=== PATIENT | male | born 1975 | race American Indian/Alaskan Native ===

== ENCOUNTER 2017-11-27 06:26 | Day surgery (SDC) | payer OTHER ==
[~2017-11-27 06:26] MED LIST: ANCEF/STERILE WATER 2 GM/20 ML 2 GM/20 ML SYRINGE IV NR; NACL 0.9% 1000 ML 1,000 ML IV SCH; VERSED IV NR
[2017-11-27] MEDS ORDERED: PROTAMINE SULFATE ONE (07:30)
[2017-11-27] MEDS ORDERED: PAPAVERINE ONE (07:30)
[2017-11-27] MEDS ORDERED: THROMBIN (BOVINE) TP ONE ×2 (07:31→09:33)
[2017-11-27] MEDS ORDERED: XYLOCAINE 1%/ EPI 1:100,000 INFILTRATI ONE (07:31)
[2017-11-27] MEDS ORDERED: SODIUM BICARBONATE ONE (07:31)
[2017-11-27] MEDS ORDERED: NACL 0.9% 500 ML 500 ML ONE (07:31)
[2017-11-27] MEDS ORDERED: MARCAINE-EPI 0.25%-1:200,000 INFILTRATI ONE (07:31)
[2017-11-27] MEDS ORDERED: GELFOAM TP ONE ×2 (07:31→09:32)
[2017-11-27] MEDS ORDERED: HEPARIN 10,000 UNITS/10 ML ONE (07:35)
[2017-11-27] MEDS ORDERED: MARCAINE-EPI 0.5%-1:200,000 INFILTRATI ONE ×3 (07:39→09:33)
[2017-11-27] MEDS ORDERED: SUBLIMAZE ONE (07:46)
[2017-11-27] MEDS ORDERED: XYLOCAINE MPF 2% ONE (07:46)
[2017-11-27] MEDS ORDERED: DIPRIVAN 10 MG/ML IV ONE (07:47)
[2017-11-27 08:11] LABS: Basophils % (Auto) 0.5 % (0.0-1.8); Eosinophils # (Auto) 0.3 K/mm3 (0.0-0.4); Eosinophils % (Auto) 4.2 % (0.0-4.3); Hematocrit 27.8 % (35.5-45.6); Hemoglobin 8.8 gm/dl (11.8-15.2); Lymphocytes # (Auto) 1.5 K/mm3 (1.2-5.4); Mean Corpuscular HGB Conc 32 % (32-34); Mean Corpuscular Volume 75 fl (84-94); Monocytes # (Auto) 0.7 K/mm3 (0.0-0.8); Monocytes % (Auto) 9.6 % (0.0-7.3); Platelet Count 257 K/mm3 (140-440); Red Blood Count 3.73 M/mm3 (3.65-5.03); Red Cell Distribution Width 16.4 % (13.2-15.2)
--- NOTE | 2017-11-27 08:15 | Anesthesia Consultation ---
Anesthesia Consult and Med Hx Date of service: 11/27/17 - Airway Anesthetic Teeth Evaluation: Poor (very loose bottom tooth), Chipped (front tooth ) ROM Head & Neck: Adequate Mental/Hyoid Distance: Adequate Mallampati Class: Class II Intubation Access Assessment: Probably Good - Pulmonary Exam CTA: Yes - Cardiac Exam Cardiac Exam: RRR - Pre-Operative Health Status ASA Pre-Surgery Classification: ASA3 Proposed Anesthetic Plan: General - Pre-Anesthesia Comment Pre-Anesthesia Comments: history DM, no medications for 3 years. Started dialysis via permacath 10/15 - Pulmonary Hx Smoking: Yes (former) - Cardiovascular System Hx Hypertension: Yes (x 1 mo) - Endocrine Hx Renal Disease: Yes Hx End Stage Renal Disease: Yes - Hematic Hx Sickle Cell Disease: Yes (Trait only)
--- NOTE | 2017-11-27 08:16 | Anesthesia Day of Surgery ---
Anesthesia Day of Surgery - Day of Surgery Patient Examined: Yes Patient H&P Reviewed: Yes Patient is NPO: Yes Beta Blockers: Yes
[2017-11-27 08:17] LABS: Mean Corpuscular Hemoglobin 24 pg (28-32)
[2017-11-27 08:23] LABS: Calcium 8.8 mg/dL (8.4-10.2)
[2017-11-27] MEDS ORDERED: NITROGLYCERIN SYRINGE 3 ML ONE (09:20)
[2017-11-27] MEDS ORDERED: NACL 0.9% IR ONE (09:32)
[2017-11-27] MEDS ORDERED: NITROGLYCERIN SYRINGE UD ONE (09:33)
[2017-11-27] MEDS ORDERED: HEPARIN 10,000 UNITS/10 ML 2,000 UNIT in NACL 0.9% 500 ML 500 ML IR ONE (09:34)
[2017-11-27] MEDS ORDERED: ePHEDrine SULFATE ONE (09:55)
[2017-11-27] MEDS ORDERED: ZOFRAN ONE (10:14)
[2017-11-27] MEDS ORDERED: NEO SYNEPHRINE/NS Syringe(OR USE) IV ONE (10:14)
--- NOTE | 2017-11-27 10:19 | Short Stay Summary ---
Short Stay Documentation Date of service: 11/27/17 - History H&P: obtained from office - Allergies and Medications Current Medications: Allergies No Known Allergies Allergy (Unverified 11/26/17 09:58) Active Medications Sodium Chloride (Nacl 0.9% 1000 Ml) 1,000 mls @ 100 mls/hr IV DIRECT ELIDIA Last Admin: 11/27/17 07:50 Dose: 100 mls/hr Cefazolin Sodium (Ancef/Sterile Water 2 Gm/20 Ml) 2 gm in 20 mls @ 80 mls/hr IV PREOP NR; Protocol Stop: 11/27/17 23:59 Midazolam HCl (Versed) 2 mg IV PREOP NR Stop: 11/27/17 23:59 Last Admin: 11/27/17 08:09 Dose: 2 mg - Brief post op/procedure progress note Date of procedure: 11/27/17 Pre-op diagnosis: ESRD Post-op diagnosis: same Procedure: LUE brachial artery to cephalic vein fistula at the elbow. Anesthesia: GETA, local (1/2% Marcaine w epi) Findings: excellent thrill and easily palpable radial pulse at the end of the case Surgeon: VIOLETTA QUIROGA Estimated blood loss: minimal Pathology: none Condition: stable - Hospital course Hospital course: benign - Disposition Condition at discharge: Good Short Stay Discharge Plan Activity: no restrictions, advance as tolerated Diet: advance as tolerated Wound: per your surgeon's advice Follow up with: VIOLETTA QUIROGA MD [Staff Physician] - 14 Days Forms: [facility]patient [facility] DC Inst. Prescriptions: HYDROcodone/ACETAMINOPHEN [[place] 5-325 Tablet] 1 each PO Q6HR PRN #20 tablet PRN Reason: Pain, Moderate (4-6)
--- NOTE | 2017-11-27 10:22 | Operative Report ---
Operative Report Operative Report: Date of procedure: 11/27/2017 Pre-operative diagnosis: End-stage renal failure Post-operative diagnosis: Same Procedure name(s): [Cephalic] vein to brachial artery fistula at the level of the elbow in the left upper extremity Surgeon: Ángel Gary MD Pitch Filler: None Anesthesia: Gen plus local supplementation w 1/2% Marcaine w epi EBL: Less than 50 mL Operative indication: Patient is a 41 year old man with a history of end-stage renal failure. The patient presents for establishment of long-term hemodialysis access. Findings: Excellent thrill in the arteriovenous fistula at the end of the procedure. Easily palpable radial pulse distal to the anastomosis. Procedure: The patient was placed on the table in the supine position. The left arm was prepped with ChloraPrep solution and draped in the usual sterile fashion. The ultrasound was used to identify the [cephalic] vein after a tourniquet had been placed in the upper arm using a rubber glove. The vein appeared to be of adequate caliber and no thrombus was noted. Under local anesthesia, an incision was made just below the elbow. Dissection was carried out to identify the [cephalic] vein. Dissection was also carried out to identify the [brachial] artery. The vein was dissected from the surrounding tissue to provide enough length to reach the artery. A branch point of the vein was spatulated for the anastomosis. Nitroglycerin was instilled into the vein to dwell while the anastomosis was created. An arteriotomy was made in the artery. Nitroglycerin was instilled into the proximal portion of the artery as well. An end-to-side anastomosis was created using running 7-0 Prolene. A #2 Lydia catheter was used to make sure all vessels were patent. The anastomosis was completed and flow started into the fistula. There was a strong thrill up the arm. Hemostasis was obtained. The wound was infiltrated with half percent Marcaine and epinephrine. Closure was done with 3-0 Vicryl and 4-0 subcuticular PDS. Dermabond was placed. The patient tolerated the procedure well. There was an easily palpable left radial pulse at the end of the procedure. There was a good thrill in the fistula at the end of the procedure. Sponge, needle, and instrument counts were reported as correct.
[2017-11-27 12:20] VITALS: BP 119/76
== END 2017-11-27 11:40 | disposition home or self-care (01) ==
LOC: OR 06:26
PROVIDERS: ATTEND Surgery Vascular Surgery
DX: I12.0 Hypertensive chronic kidney disease with stage 5 chronic kidney disease or end stage renal disease (principal); E11.22 Type 2 diabetes mellitus with diabetic chronic kidney disease; N18.6 End stage renal disease; D57.3 Sickle-cell trait; Z79.899 Other long term (current) drug therapy; Z99.2 Dependence on renal dialysis; Z87.891 Personal history of nicotine dependence
CPT/HCPCS: 36415; 36821; 80048; 85025; A4649; C1757; J0690; J1644; J2250; J2370; J2405; J2704; J3010; J7030; J7040; J2440; J2720